=== PATIENT | male | born 1975 | race Caucasian/White ===

== ENCOUNTER 2024-10-27 10:14 | Outpatient (OUT) | payer OTHER, SELFPAY | END 2024-10-27 10:15 | disposition home or self-care (01) | LOC: PST 10:14 | PROVIDERS: Visit Provider Surgery | DX: Z01.818 Encounter for other preprocedural examination (principal); Z12.11 Encounter for screening for malignant neoplasm of colon; K21.9 Gastro-esophageal reflux disease without esophagitis; R10.13 Epigastric pain ==

== ENCOUNTER 2024-11-01 07:57 | Day surgery (SDC) | payer OTHER, SELFPAY ==
--- NOTE | 2024-11-01 | OP_ITS ---
OPERATION DATE: 11/01/2024 PREOPERATIVE DIAGNOSIS: Gastroesophageal reflux disease, upper abdominal pain, colorectal screening. POSTOPERATIVE DIAGNOSIS: Antral gastritis, mild sigmoid diverticulosis. PROCEDURE: EGD with antral biopsy x2 and colonoscopy to cecum. SURGEON: Jona Mcguire M.D. ANESTHESIA: Monitored anesthesia care. ESTIMATED BLOOD LOSS: Less than 1 mL. INDICATIONS AND CONSENT: Patient is a 49-year-old male presents for intermittent epigastric abdominal plain, gastroesophageal reflux disease, as well as colorectal screening. Indications, risks, benefits, alternatives of proceeding with EGD and colonoscopy were explained extensively to the patient, including the risks of bleeding, aspiration, esophageal/gastric/duodenal or colonic perforation or anesthetic complications. All of his questions were answered. Informed consent was obtained. PROCEDURE: Patient brought to the operating room, placed in the left lateral decubitus position. Monitored anesthesia care was provided. Bite block was placed in the patient?s mouth. Scope was inserted into the oropharynx. Under direct visualization, it was advanced into the esophagus, past the cricopharyngeus, down to the stomach. The stomach was insufflated with air. The pylorus was traversed down to the descending portion of the duodenum. There was no evidence of duodenitis or ulceration. There was no scarring within the pyloric channel. Scope was pulled back into the stomach and retroflexed. There was no significant hiatal hernia. There was moderate antral gastritis without ulceration or bleeding. Biopsy x2 was obtained with pediatric cold biopsy forceps with good hemostasis. The GE junction was noted at approximately 43 cm. There was no distal esophagitis or Gaitan?s changes. The remainder of the esophagus was unremarkable. The scope was then withdrawn. Patient tolerated procedure well, was positioned for colonoscopy. Rectal exam was performed, which showed no masses or blood. The scope was then inserted into the anal canal. Under direct visualization, it was advanced. It was advanced to the cecum where cecal markings were clearly identified. There was noted to be a good prep. Upon withdrawal of the scope, mucosal surfaces were carefully examined. There were no mass lesions or polyps. No inflammatory changes or ulcerations. There was mild sigmoid diverticulosis without inflammatory changes or scarring. The scope was retroflexed in the anal canal. There were some prominent rectal veins. No significant hemorrhoidal disease. The scope was then withdrawn. The patient tolerated procedure well, was sent to recovery room in good condition. f/u screening colonoscopy should be in 10 years. CC: Patient?s family physician MARLYN
--- OUTSIDE RECORDS SUMMARY | 2024-11-01 08:07 | XMS_ITS | CCD ---
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 Name Role Phone Jimmy Singletary Unavailable Unavailable RickJimmy cook Unavailable Unavailable Provider, None Unavailable Unavailable Jimmy Singletary Unavailable Unavailable Rickjoey, Jimmy P Unavailable Unavailable Provider, None Unavailable Unavailable Jimmy Singletary Unavailable Unavailable Jimmy Singletary Unavailable Unavailable Owen Dolan Unavailable Unavailable Provider, None Unavailable Unavailable Cole Mcnair Unavailable Unavailable Provider, None Unavailable Unavailable OWEN RÍOS Attending Unavailable TIMOTEO REYNOSO Attending Unavailable Owen Ríos DO Primary Care Provider Owen Ríos DO Unavailable NONE, XXXX Primary Care Physician Unavailab Rosendo Moreno Attending Unavailable Jona SEVILLA Attending Unavailable OWEN REYNOSO Referring Unavailable Allergies Allergy Classification Reported Allergen(s) Allergy Type Date of Onset Reaction(s) Facility (1 source) No Known Medication Allergies; Translations: [No Known Medication Allergies] Propensity to adverse reactions to drug (disorder) [facility] Repository Medications Current Medications Medication Drug Class(es) Dates Sig (Normalized) Sig (Original) omeprazole 40 mg delayed release oral capsule (2 sources) Proton Pump Inhibitor Start: 08-07-2024 take 1 capsule by mouth before mealtime omeprazole (PriLOSEC) [address] capsule Indications: Gastroesophageal reflux disease without esophagitis Take 1 capsule (40 mg) by mouth in the morning. Take before meals. Do not crush or chew.. 90 capsule 1 08/08/2024 Active Problems Problem Classification Problem Date Documented Date Episodic/Chronic Abdominal pain (2 sources) Epigastric pain; Translations: [Epigastric pain] Onset: 10-25-2024 Episodic Esophageal disorders (3 sources) Gastroesophageal reflux disease without esophagitis; Translations: [Gastro-esophageal reflux disease without esophagitis] Onset: 10-25-2024 Chronic Other nutritional; endocrine; and metabolic disorders (1 source) Body mass index 40+ - severely obese 10-25-2024 Chronic Other nutritional; endocrine; and metabolic disorders (1 source) Obese class III 10-04-2024 Chronic Other screening for suspected conditions (not mental disorders or infectious disease) (1 source) Screening for malignant neoplasm of colon done; Translations: [Encounter for screening for malignant neoplasm of colon] Onset: 10-25-2024 Episodic Residual codes; unclassified (1 source) Tobacco user; Translations: [Tobacco use] Onset: 10-25-2024 Episodic Residual codes; unclassified (1 source) Chews tobacco 10-25-2024 Episodic Unclassified (1 source) Patient encounter status 10-25-2024 Results Test Name Value Interpretation Reference Range Facility Ambulatory Visit Summaryon 0 10-25-2024 Ambulatory Visit Summary Ambulatory Visit Summary AMEENA HICKSBRADY Polk :1975 Visit Date:10/25/2024 Ambulatory Visit Instructions Your Diagnosis Screening for malignant neoplasm of colon Your Care Team Attending Physician - ROEL QUIROZ, Jona Martinez Primary Care Physician - NONE, XXXX Referring Physician - OWEN REYNOSO MD This Is Your Medications List Contact prescribing physician if questions or concerns omeprazole (omeprazole 40 mg Cap-DR) Procedures Performed Tonsillectomy and adenoidectomy. Discharge Vitals Heart Rate (Peripheral) 76 Respiratory Rate 16 Blood Pressure 128/88 Height 185 cm Height 73 in Weight 144 kg Weight 317.465 lb BMI 42.07 Medications What How Much When Instructions Unchanged omeprazole (omeprazole 40 mg Cap-DR) 1 Capsules By Mouth Every day Contact prescribing physician if questions or concerns Allergies No Known Allergies Problems Ongoing - Any problem that you are currently receiving treatment for. BMI 40.0-44.9, adult Class 3 obesity GERD (gastroesophageal reflux disease) Screening for malignant neoplasm of colon Patient Survey You may receive a survey via text or e-mail asking about your office visit. Please share your experience with us by completing your survey. We appreciate your feedback and thank you for choosing us for your care. [facility] Coding Summaryon 07-26-2018 Coding Summary CODING DATE: 018 [facility] STATUS: Home PAYOR: Commercial Insurance ADMIT DX: REASON FOR VISIT DX: R10.11 Right upper quadrant pain FINAL DX: PRINCIPAL: K29.00 Acute gastritis without bleeding SECONDARY: K76.0 Fatty (change of) liver, not elsewhere classified PROCEDURES DOCTOR NAME DATE NOTE: The code number assigned matches the documented diagnosis and / or procedure in the patient's chart. However, the narrative phrase printed from the coding software may appear abbreviated, or result in slightly different terminology. Coded By: Ernesto Agosto Date Saved: 07/26/2018 09:[address] [facility] Coding Summary CODING DATE: 018 [facility] STATUS: Home PAYOR: Commercial Insurance APC DESCRIPTION 5522 Level 2 Imaging without Contrast 5571 Level 1 Imaging with Contrast ADMIT DX: REASON FOR VISIT DX: R10.11 Right upper quadrant pain FINAL DX: PRINCIPAL: K29.00 Acute gastritis without bleeding SECONDARY: K76.0 Fatty (change of) liver, not elsewhere classified PYMT PROC APC STAT DESCRIPTION DOCTOR NAME DATE NOTE: The code number assigned matches the documented diagnosis and / or procedure in the patient's chart. However, the narrative phrase printed from the coding software may appear abbreviated, or result in slightly different terminology. Coded By: Ernesto Agosto Date Saved: 07/26/2018 09:[address] [facility] Patient Handouton 07-13-2018 Patient Handout Custom(Inserted Imag e. Unable to display)[address], [address], [place] [address]Fax Ymsfqxfi 14, 2018RE: Rosendo HicksTo whom it may concern:Rosendo was seen in the office today for a consultation. Please excuse him from work on : 07/13/18Cole musa M.D. [facility] Provider Orderson 07-06-2018 Protein mass conc [id number]#1.00OTGTIFF [facility] Coding Summaryon 07-04-2018 Coding Summary CODING DATE: 018 [facility] STATUS: Home PAYOR: Commercial Insurance APC DESCRIPTION 5592 Level 2 Nuclear Medicine and Related Services ADMIT DX: REASON FOR VISIT DX: R10.11 Right upper quadrant pain FINAL DX: PRINCIPAL: R10.11 Right upper quadrant pain SECONDARY: PYMT PROC APC STAT DESCRIPTION DOCTOR NAME DATE NOTE: The code number assigned matches the documented diagnosis and / or procedure in the patient's chart. However, the narrative phrase printed from the coding software may appear abbreviated, or result in slightly different terminology. Coded By: Madelaine Mendez Date Saved: 07/04/2018 01:[address] [facility] ED Note-Nursingon 07-04-2018 ED Note-Nursing Pt called and states he is still having trouble with pain in the area of his gallbladder, and was wondering who he was suppose to follow up with. Pt instructed to follow up with Dr. Dolan or Dr. Mcnair as advised per his discharge instructions. Pt gave verbal understanding. [facility] NM HIDA Scan w/ CCKon 2017 NM HIDA Scan w/ CCK HIDA SCAN WITH CCKCLINICAL DATA: Right upper quadrant abdominal pain for one week.Utilizing technetium 99m mebrofenin, HIDA scan was performed. Pulmocare, CCKwas not available for use at this time. Initial images fail to demonstrateobvious space-occupying lesion within the liver. Gallbladder visualizes at15 minutes post injection. Isotope activity is seen within proximal smallbowel loops at 60 minutes post injection. No evidence of cholecystitis orCBD obstruction.Post Pulmocare images were obtained. Ejection fraction of the gallbladder is58% which is within normal limits. No evidence of biliary dyskinesia orsphincter dysfunction is suggested.IMPRESSION: GROSSLY UNREMARKABLE HIDA SCAN WITH PULMOCARE DESCRIBED.EJECTION FRACTION OF THE GALLBLADDER IS 58%.NEERU Rivera #: [id number]: 07/01/2018T: 07/01/2018 Final Dictated by: Shilo Barraza MD SDictated DT/TM: 07/01/18 10:24Signed (Electronic Signature): Shilo Barraza MD 07/01/18 3:39 pmTechnologist: D[facility] Consent Formson 06-29-2018 Consent Forms [id number]#[id number] [facility] .Auto Diff 1on 10-29-2018 Auto Baso % 0.6 % Normal 0.2-2.0 [facility] Comment on above: Performed By: #### [id number], 77952511, 15 36818650, 2229311573, 2172986, 2344206, ####[facility] (DEFAULT)[address] [place] [address] Auto Sanders % 7 % Normal 1-12 [facility] Comment on above: Performed By: #### 9927714, 32727653, 15 79621599, 7870903435, 0293019, 8469409, ####[facility] (DEFAULT)[address] [place] [address] Auto Neut % 65 % Normal 44-88 [facility] Comment on above: Performed By: #### 8377851, 42306241, 15 73664950, 2048638971, 9682074, 5673368, ####[facility] (DEFAULT)[address] [place] [address] Baso Abs# 0.0 x10 Normal 0.0-0.2 [facility] Comment on above: Performed By: #### 9073845, 43175352, 15 85065275, 5453158302, 8921873, 8293807, 5397498332 ####[facility] (DEFAULT)[address] [place] [address] Eos Abs# 0.3 x10 Normal 0.0-0.4 [facility] Comment on above: Performed By: #### 6804488, 43922933, 15 90144538, 8196669866, 8154657, 0684028, ####[facility] (DEFAULT)[address] [place] [address] Eosinophils/100 WBC Auto (Bld) 4.1 % High 0.9-4.0 [facility] Comment on above: Performed By: #### 7737510, 18617008, 15 25150632, 2491317934, 5343619, 3440871, 9438341714 ####[facility] (DEFAULT)[address] [place] [address] Lymphocytes Auto #/vol (Bld) 1.6 x10 Normal 1.3-2.9 [facility] Comment on above: Performed By: #### 8155966, 86674731, 15 98699214, 9985540720, 7558101, 2519559, 6642903689 ####[facility] (DEFAULT)[address] [place] [address] Lymphocytes/100 WBC Auto (Bld) 23 % Normal 14-48 [facility] Comment on above: Performed By: #### 0575897, 73947102, 15 23211647, 4049522660, 2626521, 3179585, 9451590144 ####[facility] (DEFAULT)[address] [place] [address] Sanders Abs# 0.5 x10 Normal 0.0-0.8 [facility] Comment on above: Performed By: #### 3367805, 92647246, 15 76929068, 9108454855, 5188633, 8074343, 1952384749 ####[facility] (DEFAULT)[address] [place] [address] Neut Abs# 4.3 x10 Normal 1.5-9.2 [facility] Comment on above: Performed By: #### 5199736, 43766880, 15 24268840, 0527748089, 3132199, 6315304, 3119228737 ####[facility] (DEFAULT)[address] [place] [address] Amylaseon 06-27-2018 Amylase enzyme act/vol 35.0 unit/L Normal 28.0-100.0 [facility] Comment on above: Performed By: #### 5587468, 19293217, 15 24403829, 5935879231, 4315343, 6744183, 7586906575 ####[facility] (DEFAULT)[address] [place] [address] CBC w/ Auto Diffon 8 Erythrocyte distribution width Auto Ratio (RBC) 13.8 % Normal 11.5-15.0 [facility] Comment on above: Performed By: #### 5098483, 43568853, 15 70719841, 9100619943, 5435374, 0142003, 1999491698 ####[facility] (DEFAULT)[address] [place] [address] Hematocrit Auto Volume Fraction (Bld) 45.6 % Normal 34.8-51.9 [facility] Comment on above: Performed By: #### 7921071, 21862467, 15 38396854, 5349183811, 5437820, 5208885, 4232171593 ####[facility] (DEFAULT)[address] [place] [address] Hemoglobin mass conc (Bld) 15.6 g/dL Normal 11.8-17.7 [facility] Comment on above: Performed By: #### 9453947, 50565558, 15 79435040, 4005435976, 1642916, 9119690, 8618618545 ####[facility] (DEFAULT)[address] [place] [address] Man Diff? Auto Normal [facility] Comment on above: Performed By: #### 1529554, 10787491, 15 18065759, 3115960489, 4479679, 3944889, 4807305739 ####[facility] (DEFAULT)[address] [place] [address] MCH Auto Entitic mass (RBC) 30 pg Normal 24-34 [facility] Comment on above: Performed By: #### 1952542, 18879732, 15 48988482, 2845521427, 4646848, 9370833, 2289608171 ####[facility] (DEFAULT)[address] [place] [address] MCHC Auto mass conc (RBC) 34 g/dL Normal 26-37 [facility] Comment on above: Performed By: #### 4000668, 83526311, 15 87236210, 4455645966, 8034244, 8698383, 9913900117 ####[facility] (DEFAULT)[address] [place] [address] MCV Auto Entitic volume (RBC) 88 fL Normal 81-100 [facility] Comment on above: Performed By: #### 1860132, 49110692, 15 19152721, 3523178743, 5625040, 7435039, 7238808256 ####[facility] (DEFAULT)[address] [place] [address] 85061 Platelet mean volume Auto Entitic volume (Bld) 11.4 fL High 6.3-10.2 [facility] Comment on above: Performed By: #### 1079511, 81697147, 15 24114540, 2672210546, 5446122, 4077999, 7997329211 ####[facility] (DEFAULT)[address] [place] [address] 91484 Platelets Auto #/vol (Bld) 227 x10 Normal 138-427 [facility] Comment on above: Performed By: #### 8102786, 49938671, 15 31401942, 9493672419, 8808997, 3278176, 2458778304 ####[facility] (DEFAULT)[address] [place] [address] RBC Auto #/vol (Bld) 5.21 x10 Normal 3.70-5.30 [facility] Comment on above: Performed By: #### 7332244, 31002139, 15 43552568, 9694914285, 8613063, 5473717, 8384101446 ####[facility] (DEFAULT)[address] [place] [address] 61640 WBC Auto #/vol (Bld) 6.6 x10 Invalid Interpretation Code [facility] Comment on above: Performed By: #### 2284641, 50377082, 15 10440678, 4946940488, 5067478, 1352547, 5856671109 ####[facility] (DEFAULT)[address] [place] [address] 76924 CMP Standardon 06-27-2018 eGFR Non AA >60 Invalid Interpretation Code [facility] Comment on above: Performed By: #### 5513167, 63667447, 15 58018029, 9273641580, 0275158, 6527560, 1701572530 ####[facility] (DEFAULT)[address] [place] [address] 19004 eGFR AA >60 Invalid Interpretation Code [facility] Comment on above: Result Comment: Chronic Kidney disease c ould be indicated at eGFRs of less than 60 ml/min/1.73m2. Kidney Failure is indicated at less than 15 ml/min/1.73m2 Performed By: #### 7 514656, 32733409, 0208318858, 0330821755, 0718079, 4087895, 6320265612 ####[facility] (DEFAULT)[address] [place] [address] 68151 Albumin mass conc 4.1 g/dL Normal 3.5-5.0 [facility] Comment on above: Performed By: #### 3691759, 01086531, 15 51805071, 8661938713, 3419707, 0449810, 2843574808 ####[facility] (DEFAULT)[address] [place] [address] 68557 Albumin/Globuli n mass ratio 1.1 {ratio} Low 1.4-2.6 [facility] Comment on above: Performed By: #### 7083722, 62723198, 15 97160021, 0792176995, 7143262, 6789491, 6463843578 ####[facility] (DEFAULT)[address] [place] [address] 51252 Alk Phos 70 IU/L Normal 32-91 [facility] Comment on above: Performed By: #### 4100130, 75212717, 15 05398797, 8013935624, 5291978, 3123026, 0964191054 ####[facility] (DEFAULT)[address] [place] [address] 43876 ALT/SGPT 31.0 IU/L Normal 17.0-63.0 [facility] Comment on above: Performed By: #### 4713086, 35620373, 15 26160335, 4668700479, 7878978, 2711846, 8391353921 ####[facility] (DEFAULT)[address] [place] [address] 28168 Anion gap 3 molar conc 14.0 mmol/L Normal 5.0-19.0 [facility] Comment on above: Performed By: #### 2962386, 95011861, 15 57043586, 5737026038, 3721958, 9526193, 1924532316 ####[facility] (DEFAULT)[address] [place] [address] 87471 AST/SGOT 20 IU/L Normal 15-41 [facility] Comment on above: Performed By: #### 8065566, 66988585, 15 19846504, 6819108289, 1510490, 5881465, 3157581378 ####[facility] (DEFAULT)[address] [place] [address] 93858 Bili Total 0.8 mg/dL Normal 0.3-1.2 [facility] Comment on above: Performed By: #### 7612000, 44526393, 15 45876912, 3568569928, 5776260, 7284046, 5291625144 ####[facility] (DEFAULT)[address] [place] [address] 47677 Calcium mass conc 9.4 mg/dL Normal 8.9-10.3 [facility] Comment on above: Performed By: #### 3128906, 41289981, 15 26798847, 0657208305, 1052929, 7498898, 5386868250 ####[facility] (DEFAULT)[address] [place] [address] 31190 Chloride molar conc 100 mmol/L Low 101-111 [facility] Comment on above: Performed By: #### 8605460, 19531729, 15 10219748, 5861131653, 2580888, 4886699, 7590763469 ####[facility] (DEFAULT)[address] [place] [address] 20866 CO2 molar conc 26 mmol/L Normal 21-32 [facility] Comment on above: Performed By: #### 8496748, 59099085, 15 89745016, 2212826013, 2561600, 0452305, 9715342944 ####[facility] (DEFAULT)[address] [place] [address] 53606 Creatinine mass conc 0.91 mg/dL Normal 0.90-1.30 [facility] Comment on above: Performed By: #### 1999538, 32666109, 15 15828606, 6415172250, 5568630, 3957022, 5681426428 ####[facility] (DEFAULT)[address] [place] [address] Globulin Calculated mass conc (S) 3.8 g/dL Normal 1.5-4.3 [facility] Comment on above: Performed By: #### 5506888, 24278892, 15 99302303, 6378372075, 3819709, 8732431, 7136328854 ####[facility] (DEFAULT)[address] [place] [address] 72604 Glucose mass conc 100.0 mg/dL Normal 74.0-118.0 [facility] Comment on above: Performed By: #### 9931377, 22328214, 15 16280375, 1235810102, 2298866, 7037150, 4937791665 ####[facility] (DEFAULT)[address] [place] [address] 79174 Osmolality 271 mOsm/L Invalid Interpretation Code [facility] Comment on above: Performed By: #### 9211818, 73161327, 15 00203005, 0310137006, 0192458, 0244939, ####[facility] (DEFAULT)[address] [place] [address] 18158 Potassium molar conc 3.7 mmol/L Normal 3.6-5.1 [facility] Comment on above: Performed By: #### 4209187, 59801684, 15 76430113, 4831710469, 4056073, 7713195, ####[facility] (DEFAULT)[address] [place] [address] 01902 Protein mass conc 7.9 g/dL Normal 6.5-8.1 [facility] Comment on above: Performed By: #### 1770307, 55600046, 15 38747913, 2697875425, 6163704, 0137292, 4252575747 ####[facility] (DEFAULT)[address] [place] [address] 26569 Sodium molar conc 136.0 mmol/L Normal 136.0-144.0 [facility] Comment on above: Performed By: #### 7807426, 46422367, 15 77464933, 6383934609, 3117785, 8493573, 6757431392 ####[facility] (DEFAULT)[address] [place] [address] Urea nitrogen mass conc 11 mg/dL Normal 8-26 [facility] Comment on above: Performed By: #### 8763062, 46951900, 15 56851116, 5457932542, 2063291, 8657311, 8020791860 ####[facility] (DEFAULT)[address] [place] [address] Urea nitrogen/Creati nine mass ratio 12.0 mg/mg Normal 4.6-16.2 [facility] Comment on above: Performed By: #### 2174587, 73100645, 15 62422718, 3601805069, 3189155, 2896520, 7026426562 ####[facility] (DEFAULT)[address] [place] [address] CT Abdomen/Pelvis w/ Contras ton 06-27-2018 CT Abdomen/Pelvis w/ Contrast CT ABDOMEN AND CT PELVIS WITH CONTRASTCLINICAL DATA: Right upper and lower quadrant abdominal and upper pelvicpain for three days with associated diarrhea, symptoms worse today. Dosereduction technique was utilized for these studies.CT abdomen study was performed with the use of intravenous and with oralcontrast. There are minimal atelectatic and/or fibrotic changes in the rightlower lung field. Views of the liver and spleen fail to demonstrate evidenceof focal mass in either organ. There is mild to moderate decreasedattenuation of the liver compatible with fatty infiltration. Gallbladder,pancreas and adrenal glands appear unremarkable. Bowel loops are grosslyunremarkable. Stomach appears unremarkable. Visualized vascular structuresare intact. No evidence of adenopathy in the retroperitoneum. No evidenceof renal mass or obstructive uropathy.CT pelvis study was performed with the use of intravenous and oral contrast.There is a small fat filled umbilical hernia without bowel content. Bladderappears unremarkable. Prostate gland is grossly within normal limits forsize. Prostate calcifications are noted. Pararectal fat planes are intact.Bowel loops are grossly unremarkable. Visualized vascular structures areintact. No evidence of adenopathy. The appendix is visualized and appearsunremarkable. There is mild wall thickening at the base of the cecum likelyrelated to spasm. There are mild degenerative changes in the lumbar spinewith areas of mild spinal stenosis suggested. There is bilateral [id number] without obvious associated spondylolisthesis at L3-L4. There isaura small fat filled right inguinal hernia without bowel content.IMPRESSION:1. CT ABDOMEN AND CT PELVIS STUDIES FAIL TO DEMONSTRATE DEFINITE EVIDENCEOF ACUTE PROCESS.2. SMALL FAT FILLED UMBILICAL HERNIA.3. SMALL FAT FILLED RIGHT INGUINAL HERNIA.4. MILD TO MODERATE FATTY INFILTRATION OF THE LIVER.Shilo Barraza MDJOB #: [id number]: 06/28/2018T: 06/28/2018 Final Dictated by: Shilo Barraza MD SDictated DT/TM: 06/28/18 8:11Signed (Electronic Signature): Shilo Barraza MD S 06/28/18 11:25 aTechnologist: LT RAYNA Normal [facility] ED Clinical Summaryon 2017 ED Clinical Summary [facility] - Emergency [address] [place], [place] [id number] ed Clinical SummaryPERSON INFORMATIONName: ROSENDO HICKS Age: 42 Years Sex: MALEDOB: [birth year] MRN: Acct#:Visit Reason: Abdominal pain; RIGHT FLANK PAIN Arrival: 06/27/18 15:43:00 Discharge: 06/27/18 19:55:00LOS: 000 04:12 Check In: 06/27/18 15:43:00 Checkout:06/27/18 19:55:00Address:[address] [facility] [address]: Provider, NonePROVIDER INFORMATIONProvider Role Assigned UnassignedKeri Jimenez ED PA 06/27/18 15:49:35Monique Cam RN ED Nurse 06/27/18 15:50:26 06/27/18 19:21:05Malgorzata Dave ED Nurse 06/27/18 19:20:06VITALS INFORMATIONVital Sign Triage LatestTemperature TympanicTemperature Temporal ArteryPulse Rate 80 bpm 82 bpmO2 Sat 100 % 100 %Respiratory Rate 18 br/min 16 br/minBlood Pressure 142 mmHg/97 mmHg 142 mmHg/97 mmHgMEDICAL INFORMATIONMedications Given:Medication Dose Routesodium chloride 10 mL IV Pushiohexol 350 mg IV Pushsodium chloride 10 mL IV PushAllergy Information:No Known Medication AllergiesPHYSICIAN DOCUMENTATIONPatient: ROSENDO HICKS : 42 years Sex: MALE : 73Associated Diagnoses: Acute gastritis; Fatty infiltration of liverAuthor: Zohra Jimenez InformationTime seen: Date & time 06/27/18 15:54:00.History source: Patient.Arrival mode: Private vehicle.History limitation: None.Additional information: Chief Complaint from Nursing Triage Note : Chief Rdpzobslp84/29/18 15:50 EDT Chief Complaint RUQ pain intermittent X 2-3 months, increasing X 2 days with nausea today .History of Present [id number]-wqpo-wam male presents to emergency department complaining of right upper quadrant abdominal discomfort. Patient states he's been having the symptoms intermittently for the last 2-3 months. It's been worse over the last 2 days. Experienced some nausea and increasing pain after eating a breakfast sandwich earlier this morning. He states symptoms do seem to get worse after eating. She's not had any vomiting but has had intermittent diarrhea as well. There is no fever or chills. Pain at its worse is a 7 on a 10 scale. Currently it is a 2-3 on a 10 scale.Review of SystemsConstitutional symptoms: No fever, no chills.Skin symptoms: No rash,ENMT symptoms: No ear pain, no sore throat, no nasal congestion.Respiratory symptoms: No shortness of breath, no cough.Cardiovascular symptoms: No chest pain, no palpitations, no tachycardia, no syncope.Gastrointestinal symptoms: Abdominal pain, moderate, right upper quadrant, nausea, diarrhea, No vomiting, Additional review of systems information: All other systems reviewed and otherwise negative.Health StatusAllergies:No active allergies have been recorded..Past Medical/ Family/ Social HistoryMedical history:No active or resolved past medical history items have been selected or recorded..Surgical history:No active procedure history items have been selected or recorded..Family history:No family history items have been selected or recorded..Social history:Social & Psychosocial HabitsNo Data Available.Problem list:No qualifying data available.Physical Examination Vital SignsVital Signs06/27/18 15:50 EDT Temperature Oral 36.9 DegC Peripheral Pulse Rate 80 bpm Respiratory Rate 18 br/min Systolic Blood Pressure 142 mmHg HI Diastolic Blood Pressure 97 mmHg HI SpO2 100 % Oxygen Therapy Nasal cannula.General: Alert, no acute distress.Skin: Warm, dry, pink, intact.Head: Normocephalic, atraumatic.Neck: Supple, trachea midline.Eye: Normal conjunctiva.Ears, nose, mouth and throat: Oral mucosa moist.Cardiovascular: Regular rate and rhythm, No murmur, Normal peripheral perfusion, No edema.Respiratory: Lungs are clear to auscultation, respirations are non-labored, breath sounds are equal, Symmetrical chest wall expansion.Gastrointestinal: Soft, Non distended, Tenderness: Mild, right upper quadrant, Guarding: Negative, Rebound: Negative, Bowel sounds: Normal, Signs: None.Musculoskeletal: Normal ROM, normal strength.Neurological: Alert and oriented to person, place, time, and situation, normal motor observed, normal speech observed, normal coordination observed.Medical Decision MakingDifferential Diagnosis: Abdominal pain, renal stone, biliary colic, pancreatitis, gastritis, not pyelonephritis.Rationale: This patient presents to the emergency department with a 2-3 month history of intermittent right upper quadrant abdominal pain that worsens after eating. He describes indigestion like symptoms as well. We'll check basic blood work including amylase and lipase and get a gallbladder ultrasound. Will consider CT as well..Documents reviewed: Emergency department nurses' notes.Orders Launch OrdersLaboratory:Lipase Level (Order): Blood, Stat collect, 06/27/18 15:54 EDT, Lab CollectLactic Acid (Order): Blood, Stat collect, 06/27/18 15:54 EDT, Lab CollectCMP Standard (Order): Blood, Stat collect, 06/27/18 15:54 EDT, Lab CollectCBC w/ Auto Diff (Order): Blood, Stat collect, 06/27/18 15:54 EDT, Lab CollectAmylase Level (Order): Blood, Stat collect, 06/27/18 15:54 EDT, Lab CollectRadiology:US Gallbladder (Order): 06/27/18 15:55 EDT Stat, abdominal pain, Allow Modification Per Radiologist, Transport Mode: Wheelchair, Launch OrdersPatient Care:Saline Lock Insert (Order): 06/27/18 16:49 EDT, Constant orderPharmacy:Normal Saline Flush (Order): 10 mL, IV Push, As DirectedRadiology:CT Abdomen/Pelvis w/ Contrast (Order): 06/27/18 16:49 EDT Stat, RUQ pain, Allow Modification Per Radiologist, Transport Mode: Cart, IV and oral contrast, Yes.Results review: Lab results : Lab Hkxxpmvzt40/29/18 15:55 EDT Sodium Level 136.0 mmol/L Potassium Level 3.7 mmol/L Chloride Level 100 mmol/L LOW CO2 26 mmol/L Anion Gap 14.0 mmol/L Glucose Level 100.0 mg/dL BUN 11 mg/dL Creatinine Level 0.91 mg/dL BUN/Creat Ratio 12.0 eGFR AA >60 mL/min/1.73m2 NA eGFR Non AA >60 mL/min/1.73m2 NA Calcium Level 9.4 mg/dL Bili Total 0.8 mg/dL Alk Phos 70 IU/L AST/SGOT 20 IU/L ALT/SGPT 31.0 IU/L Protein Total 7.9 gm/dL Albumin Level 4.1 gm/dL Globulin 3.8 gm/dL A/G Ratio 1.1 LOW Amylase Level 35.0 unit/L Lipase Level 21.0 IU/L LOW Osmolality 271 mOsm/L NA Lactic Acid 8.8 mg/dL WBC 6.6 x103/mcL RBC 5.21 x106/mcL Hgb 15.6 gm/dL Hct 45.6 % MCV 88 fL MCH 30 pg MCHC 34 gm/dL RDW 13.8 % Platelet 227 x103/mcL MPV 11.4 fL HI Auto Neut % 65 % Auto Lymph % 23 % Auto Sanders % 7 % Auto Eos % 4.1 % HI Auto Baso % 0.6 % Neut Abs# 4.3 x103/mcL Lymph Abs# 1.6 x103/mcL Sanders Abs# 0.5 x103/mcL Eos Abs# 0.3 x103/mcL Baso Abs# 0.0 x103/mcL Tube Collected Yes Tube Collected Yes.Radiology results: Gallbladder ultrasound is interpreted by the radiologist. Gallbladder is within normal. Common bile duct measures 0.35 cm. Gallbladder wall is normal at 0.2 cm. Liver is consistent with fatty liver disease., CT of the abdomen and pelvis with IV and oral contrast interpreted by the radiologist. No acute pathology is noted..Reexamination/ ReevaluationGallbladder ultrasound is interpreted by the radiologist does not show any acute abnormalities. Discussed CT scan with patient and and they are agreeable. He'll be to order outpatient HIDA scan if CT is normal. This patient presented to the emergency department with a 2-3 month history of intermittent right upper quadrant abdominal pain that seems to get worse with eating. On exam, there is no guarding, rebound or rigidity. There is no Mendez sign. He is afebrile. Laboratory values were normal with sodium 136, potassium 3.7, chloride 100 and CO2 of 26. Glucose of 100 with BUN and creatinine 11 and 0.91. Liver function studies were normal with total bili of 0.8, alkaline phosphatase 70, AST of 20 and ALT at 31. Amylase and lipase are also normal at 35 and 21. Lactic acid 8.8. There is no leukocytosis with WBC of 6.6. H&H 15.6 and 45.6. An ultrasound of the gallbladder was completed. There was no acute abnormalities noted. Patient agreed to CT scan with IV and oral contrast. This was interpreted by the radiologist. There are no acute findings noted. Patient was in no acute distress. Plan is to discharge home with prescriptions for Protonix as well as outpatient order for HIDA scan. Patient is to follow-up with medicine on-call and return to ER for any worsening or concerning symptoms.Impression and PlanDiagnosisAcute gastritis ([id number] K29.0, Discharge, Medical)Fatty infiltration of liver ([id number]-JW K76.0, Discharge, Medical)PlanCondition: Stable.Disposition: Discharged: Time 06/27/18 19:35:00, to home.Prescriptions: Launch prescriptionsPharmacy:HIDA Scan (Prescribe): See Instructions, DX: RUQ pain Results to Dr. Dolan, 1 EA, 0 Refill(s), Launch Meds List (Selected)PrescriptionsPrescribedP rotonix 40 mg oral delayed release tablet: 40 mg = 1 tab(s), PO, Daily, 30 tab(s), 0 Refill(s).Patient was given the following educational materials: Biliary Colic, Adult, Fatty Liver.Follow up with: Owen Dolan Within 7 to 10 days; ; Cole Mcnair Within 7 to 10 days General surgery.Counseled: Patient, Family, Regarding diagnosis, Regarding diagnostic results, Regarding treatment plan, Regarding prescription, Patient indicated understanding of instructions.DISCHARGE INFORMATION:Discharge Disposition: HomeDischarge Location: HomePATIENT EDUCATION INFORMATIONInstructions: Biliary Colic, Adult; Fatty LiverFollow-Up:With: Address: When:Cole Mcnair Within 7 to 10 daysComments:General surgeryWith: Address: When:Owen Dolan Within 7 to 10 daysDIAGNOSIS:Acute gastritis; Fatty infiltration of liverPatient Understands: Yes - Patient/family/caregiver verbalizes understanding of instructions givenComment: [facility] - Physician Patient: ROSENDO HICKS : 42 years Sex: MALE : 73Associated Diagnoses: Acute gastritis; Fatty infiltration of liverAuthor: Zohra Jimenez InformationTime seen: Date & time 06/27/18 15:54:00.History source: Patient.Arrival mode: Private vehicle.History limitation: None.Additional information: Chief Complaint from Nursing Triage Note : Chief Ymncbkquf85/29/18 15:50 EDT Chief Complaint RUQ pain intermittent X 2-3 months, increasing X 2 days with nausea today .History of Present [id number] male presents to emergency department complaining of right upper quadrant abdominal discomfort. Patient states he's been having the symptoms intermittently for the last 2-3 months. It's been worse over the last 2 days. Experienced some nausea and increasing pain after eating a breakfast sandwich earlier this morning. He states symptoms do seem to get worse after eating. She's not had any vomiting but has had intermittent diarrhea as well. There is no fever or chills. Pain at its worse is a 7 on a 10 scale. Currently it is a 2-3 on a 10 scale.Review of SystemsConstitutional symptoms: No fever, no chills.Skin symptoms: No rash,ENMT symptoms: No ear pain, no sore throat, no nasal congestion.Respiratory symptoms: No shortness of breath, no cough.Cardiovascular symptoms: No chest pain, no palpitations, no tachycardia, no syncope.Gastrointestinal symptoms: Abdominal pain, moderate, right upper quadrant, nausea, diarrhea, No vomiting, Additional review of systems information: All other systems reviewed and otherwise negative.Health StatusAllergies:No active allergies have been recorded..Past Medical/ Family/ Social HistoryMedical history:No active or resolved past medical history items have been selected or recorded..Surgical history:No active procedure history items have been selected or recorded..Family history:No family history items have been selected or recorded..Social history:Social & Psychosocial HabitsNo Data Available.Problem list:No qualifying data available.Physical Examination Vital SignsVital Signs06/27/18 15:50 EDT Temperature Oral 36.9 DegC Peripheral Pulse Rate 80 bpm Respiratory Rate 18 br/min Systolic Blood Pressure 142 mmHg HI Diastolic Blood Pressure 97 mmHg HI SpO2 100 % Oxygen Therapy Nasal cannula.General: Alert, no acute distress.Skin: Warm, dry, pink, intact.Head: Normocephalic, atraumatic.Neck: Supple, trachea midline.Eye: Normal conjunctiva.Ears, nose, mouth and throat: Oral mucosa moist.Cardiovascular: Regular rate and rhythm, No murmur, Normal peripheral perfusion, No edema.Respiratory: Lungs are clear to auscultation, respirations are non-labored, breath sounds are equal, Symmetrical chest wall expansion.Gastrointestinal: Soft, Non distended, Tenderness: Mild, right upper quadrant, Guarding: Negative, Rebound: Negative, Bowel sounds: Normal, Signs: None.Musculoskeletal: Normal ROM, normal strength.Neurological: Alert and oriented to person, place, time, and situation, normal motor observed, normal speech observed, normal coordination observed.Medical Decision MakingDifferential Diagnosis: Abdominal pain, renal stone, biliary colic, pancreatitis, gastritis, not pyelonephritis.Rationale: This patient presents to the emergency department with a 2-3 month history of intermittent right upper quadrant abdominal pain that worsens after eating. He describes indigestion like symptoms as well. We'll check basic blood work including amylase and lipase and get a gallbladder ultrasound. Will consider CT as well..Documents reviewed: Emergency department nurses' notes.Orders Launch OrdersLaboratory:Lipase Level (Order): Blood, Stat collect, 06/27/18 15:54 EDT, Lab CollectLactic Acid (Order): Blood, Stat collect, 06/27/18 15:54 EDT, Lab CollectCMP Standard (Order): Blood, Stat collect, 06/27/18 15:54 EDT, Lab CollectCBC w/ Auto Diff (Order): Blood, Stat collect, 06/27/18 15:54 EDT, Lab CollectAmylase Level (Order): Blood, Stat collect, 06/27/18 15:54 EDT, Lab CollectRadiology:US Gallbladder (Order): 06/27/18 15:55 EDT Stat, abdominal pain, Allow Modification Per Radiologist, Transport Mode: Wheelchair, Launch OrdersPatient Care:Saline Lock Insert (Order): 06/27/18 16:49 EDT, Constant orderPharmacy:Normal Saline Flush (Order): 10 mL, IV Push, As DirectedRadiology:CT Abdomen/Pelvis w/ Contrast (Order): 06/27/18 16:49 EDT Stat, RUQ pain, Allow Modification Per Radiologist, Transport Mode: Cart, IV and oral contrast, Yes.Results review: Lab results : Lab Qzntlehpy11/29/18 15:55 EDT Sodium Level 136.0 mmol/L Potassium Level 3.7 mmol/L Chloride Level 100 mmol/L LOW CO2 26 mmol/L Anion Gap 14.0 mmol/L Glucose Level 100.0 mg/dL BUN 11 mg/dL Creatinine Level 0.91 mg/dL BUN/Creat Ratio 12.0 eGFR AA >60 mL/min/1.73m2 NA eGFR Non AA >60 mL/min/1.73m2 NA Calcium Level 9.4 mg/dL Bili Total 0.8 mg/dL Alk Phos 70 IU/L AST/SGOT 20 IU/L ALT/SGPT 31.0 IU/L Protein Total 7.9 gm/dL Albumin Level 4.1 gm/dL Globulin 3.8 gm/dL A/G Ratio 1.1 LOW Amylase Level 35.0 unit/L Lipase Level 21.0 IU/L LOW Osmolality 271 mOsm/L NA Lactic Acid 8.8 mg/dL WBC 6.6 x103/mcL RBC 5.21 x106/mcL Hgb 15.6 gm/dL Hct 45.6 % MCV 88 fL MCH 30 pg MCHC 34 gm/dL RDW 13.8 % Platelet 227 x103/mcL MPV 11.4 fL HI Auto Neut % 65 % Auto Lymph % 23 % Auto Sanders % 7 % Auto Eos % 4.1 % HI Auto Baso % 0.6 % Neut Abs# 4.3 x103/mcL Lymph Abs# 1.6 x103/mcL Sanders Abs# 0.5 x103/mcL Eos Abs# 0.3 x103/mcL Baso Abs# 0.0 x103/mcL Tube Collected Yes Tube Collected Yes.Radiology results: Gallbladder ultrasound is interpreted by the radiologist. Gallbladder is within normal. Common bile duct measures 0.35 cm. Gallbladder wall is normal at 0.2 cm. Liver is consistent with fatty liver disease., CT of the abdomen and pelvis with IV and oral contrast interpreted by the radiologist. No acute pathology is noted..Reexamination/ ReevaluationGallbladder ultrasound is interpreted by the radiologist does not show any acute abnormalities. Discussed CT scan with patient and and they are agreeable. He'll be to order outpatient HIDA scan if CT is normal. This patient presented to the emergency department with a 2-3 month history of intermittent right upper quadrant abdominal pain that seems to get worse with eating. On exam, there is no guarding, rebound or rigidity. There is no Mendez sign. He is afebrile. Laboratory values were normal with sodium 136, potassium 3.7, chloride 100 and CO2 of 26. Glucose of 100 with BUN and creatinine 11 and 0.91. Liver function studies were normal with total bili of 0.8, alkaline phosphatase 70, AST of 20 and ALT at 31. Amylase and lipase are also normal at 35 and 21. Lactic acid 8.8. There is no leukocytosis with WBC of 6.6. H&H 15.6 and 45.6. An ultrasound of the gallbladder was completed. There was no acute abnormalities noted. Patient agreed to CT scan with IV and oral contrast. This was interpreted by the radiologist. There are no acute findings noted. Patient was in no acute distress. Plan is to discharge home with prescriptions for Protonix as well as outpatient order for HIDA scan. Patient is to follow-up with medicine on-call and return to ER for any worsening or concerning symptoms.Impression and PlanDiagnosisAcute gastritis ([id number] K29.0, Discharge, Medical)Fatty infiltration of liver ([id number] K76.0, Discharge, Medical)PlanCondition: Stable.Disposition: Discharged: Time 06/27/18 19:35:00, to home.Prescriptions: Launch prescriptionsPharmacy:HIDA Scan (Prescribe): See Instructions, DX: RUQ pain Results to Dr. Dolan, 1 EA, 0 Refill(s), Launch Meds List (Selected)PrescriptionsPrescribedP rotonix 40 mg oral delayed release tablet: 40 mg = 1 tab(s), PO, Daily, 30 tab(s), 0 Refill(s).Patient was given the following educational materials: Biliary Colic, Adult, Fatty Liver.Follow up with: Owen Dolan Within 7 to 10 days; ; Cole Mcnair Within 7 to 10 days General surgery.Counseled: Patient, Family, Regarding diagnosis, Regarding diagnostic results, Regarding treatment plan, Regarding prescription, Patient indicated understanding of instructions.[Electronically Signed on: 06/27/2018 19:42 EDT] Keri Jimenez[Electronically Signed on: 06/28/2018 18:54 EDT] Jimmy Singletary MD[Verified on: 06/27/2018 19:42 EDT] Keri Jimenez [facility] ED Patient Education Noteon 06-27-2018 ED Patient Education Note Education MaterialsGastroenterologyBiliary Colic, AdultBiliary colic is severe pain caused by a problem with a small organ in the upper right part of your belly (gallbladder). The gallbladder stores a digestive fluid produced in the liver (bile) that helps the body break down fat. Bile and other digestive enzymes are carried from the liver to the small intestine though tube-like structures (bile ducts). The gallbladder and the bile ducts form the biliary tract. Sometimes hard deposits of digestive fluids form in the gallbladder (gallstones) and block the flow of bile from the gallbladder, causing biliary colic. This condition is also called a gallbladder attack. Gallstones can be as small as a grain of sand or as big as a golf ball. There could be just one gallstone in the gallbladder, or there could be many.What are the causes?Biliary colic is usually caused by gallstones. Less often, a tumor could block the flow of bile from the gallbladder and trigger biliary colic.What increases the risk?This condition is more likely to develop in:? Women.? People of descent.? People with a family history of gallstones.? People who are obese.? People who suddenly or quickly lose weight.? People who eat a high-calorie, low-fiber diet that is rich in refined carbs (carbohydrates), such as white bread and white rice.? People who have an intestinal disease that affects nutrient absorption, such as Crohn disease.? People who have a metabolic condition, such as metabolic syndrome or diabetes.What are the signs or symptoms?Severe pain in the upper right side of the belly is the main symptom of biliary colic. You may feel this pain below the chest but above the hip. This pain often occurs at night or after eating a very fatty meal. This pain may get worse for up to an hour and last as long as 12 hours. In most cases, the pain fades (subsides) within a couple hours.Other symptoms of this condition include:? Nausea and vomiting.? Pain under the right shoulder.How is this diagnosed?This condition is diagnosed based on your medical history, your symptoms, and a physical exam. You may have tests, including:? Blood tests to rule out infection or inflammation of the bile ducts, gallbladder, pancreas, or liver.? Imaging studies such as:? Ultrasound.? CT scan.? MRI.In some cases, you may need to have an imaging study done using a small amount of radioactive material (nuclear medicine) to confirm the diagnosis.How is this treated?Treatment for this condition may include medicine to relieve your pain or nausea. If you have gallstones that are causing biliary colic, you may need surgery to remove the gallbladder (cholecystectomy). Gallstones can also be dissolved gradually with medicine. It may take months or years before the gallstones are completely gone.Follow these instructions at home:? Take [id number] and prescription medicines only as told by your health care provider.? Drink enough fluid to keep your urine clear or pale yellow.? Follow instructions from your health care provider about eating or drinking restrictions. These may include avoiding:? Fatty, greasy, and fried foods.? Any foods that make the pain worse.? Overeating.? Having a large meal after not eating for a while.? Keep all follow-up visits as told by your health care provider. This is important.How is this prevented?Steps to prevent this condition include:? Maintaining a healthy body weight.? Getting regular exercise.? Eating a healthy, high-fiber, low-fat diet.? Limiting how much sugar and refined carbs you eat, such as sweets, white flour, and white rice.Contact a health care provider if:? Your pain lasts more than 5 hours.? You vomit.? You have a fever and chills.? Your pain gets worse.Get help right away if:? Your skin or the whites of your eyes look yellow (jaundice).? Your have tea-colored urine and light-colored stools.? You are dizzy or you faint.This information is not intended to replace advice given to you by your health care provider. Make sure you discuss any questions you have with your health care provider.Document Released: 01/17/2007 Document Revised: 04/13/2017 Document Reviewed: 03/01/2017[employer] Patient Education ? 2018 [employer].Fatty LiverFatty liver, also called hepatic steatosis or steatohepatitis, is a condition in which too much fat has built up in your liver cells. The liver removes harmful substances from your bloodstream. It produces fluids your body needs. It also helps your body use and store energy from the food you eat. In many cases, fatty liver does not cause symptoms or problems. It is often diagnosed when tests are being done for other reasons. However, over time, fatty liver can cause inflammation that may lead to more serious liver problems, such as scarring of the liver (cirrhosis).What are the causes?Causes of fatty liver may include:? Drinking too much alcohol.? Poor nutrition.? Obesity.? Aden syndrome.? Diabetes.? Hyperlipidemia.? .? Certain drugs.? Poisons.? Some viral infections.What increases the risk?You may be more likely to develop fatty liver if you:? Abuse alcohol.? Are .? Are overweight.? Have diabetes.? Have hepatitis.? Have a high triglyceride level.What are the signs or symptoms?Fatty liver often does not cause any symptoms. In cases where symptoms develop, they can include:? Fatigue.? Weakness.? Weight loss.? Confusion.? Abdominal pain.? Yellowing of your skin and the white parts of your eyes (jaundice).? Nausea and vomiting.How is this diagnosed?Fatty liver may be diagnosed by:? Physical exam and medical history.? Blood tests.? Imaging tests, such as an ultrasound, CT scan, or MRI.? Liver biopsy. A small sample of liver tissue is removed using a needle. The sample is then looked at under a microscope.How is this treated?Fatty liver is often caused by other health conditions. Treatment for fatty liver may involve medicines and lifestyle changes to manage conditions such as:? Alcoholism.? High cholesterol.? Diabetes.? Being overweight or obese.Follow these instructions at home:? Eat a healthy diet as directed by your health care provider.? Exercise regularly. This can help you lose weight and control your cholesterol and diabetes. Talk to your health care provider about an exercise plan and which activities are best for you.? Do not drink alcohol.? Take medicines only as directed by your health care provider.Contact a health care provider if:You have difficulty controlling your:? Blood sugar.? Cholesterol.? Alcohol consumption.Get help right away if:? You have abdominal pain.? You have jaundice.? You have nausea and vomiting.This information is not intended to replace advice given to you by your health care provider. Make sure you discuss any questions you have with your health care provider.Document Released: 10/01/2006 Document Revised: 01/21/2017 Document Reviewed: 12/26/2014[employer] Patient Education ? 2018 [employer]. Normal [facility] ED Patient Summaryon 018 ED Patient Summary [facility] - Emergency [address] [place] [address] pATIENT DISCHARGE INSTRUCTIONSPatient InformationName: ROSENDO HICKS Age: 42 YearsDate of : [birth year]MRN: [id number] Visit: Abdominal pain; RIGHT FLANK PAINArrival Time: 06/27/18 15:43:00Phone: Primary Care Physician: Provider, NoneAttending Physician: Jimmy Singletary MDComment:Visit Diagnosis:Diagnoses This Visit Abdominal pain ([id number]) Acute gastritis (K29.0) Fatty infiltration of liver (K76.0)If you received any narcotics, sedation, or any other medication that causes drowsiness for the next 24 hours, unless otherwise directed:? Do not drive a car.? Do not operate machinery such as power tools, lawn mowers, drills, sewing machines, or stoves? Avoid alcoholic beverages and drugs for allergies, nerves, or sleep? Do not make important personal or business decisions or sign any legal documentsWith: Address: When:Cole Mcnair Within 7 to 10 daysComments:General surgeryWith: Address: When:Owen Dolan Within 7 to 10 daysMedication Information:The exam and treatment you received today in the [facility] Emergency Department were for an urgent problem and are not intended as complete care. It is important for you to follow up with a doctor, nurse practitioner, or physician?s learning and development assistant for ongoing care. If your symptoms become worse or you do not improve as expected and you are unable to reach your usual health care provider, you should return to the Emergency Department, we are available 24 hours a day.For those patients who have received Radiology results, the interpretation of your X-ray as given to you by our Emergency Department physician is only a preliminary report. The Radiologist will review your films and if there is a change in the diagnosis you will be notified by phone. Please make sure you have provided a working phone number so we can reach you if necessary.In the event that you had a lab culture while you were a patient in the Emergency Department, you will be notified by phone if there is a need to change your antibiotic. Please make sure you have provided a working phone number so we can reach you if necessary.[facility] Emergency Department has provided you with a complete list of medications post discharge. 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 Any specific questions regarding your chronic medications and dosages should be discussed with your primary care physician(s) and/or pharmacist. New MedicationsPrinted PrescriptionsMisc Prescription (HIDA Scan) DX: RUQ painResults to Dr. Dolan. Refills: 0.pantoprazole (Protonix 40 mg oral delayed release tablet) 1 tab(s) Oral every day. Refills: 0.Visit InformationAllergies:Substance Reaction Symptoms Type CommentsNo Known Medication Allergies DrugVital Signs: Vitals and Measurements this Visit (last charted value for your 06/27/2018 visit) Vital Signs This Visit Temperature Oral: 36.9 DegC Peripheral Pulse Rate: 82 bpm Respiratory Rate: 16 br/min Systolic Blood Pressure: 147 mmHg Diastolic Blood Pressure: 99 mmHg SpO2: 100 % Oxygen Therapy: Room air Measurements This Visit Height/Length Dosin.480 cm Height/Length Estimated: 185.480 cm Weight Dosin.010 kg Weight Estimated: 127.010 kgProblems List:Problem Onset CommentsNo Problems foundPatient EducationBiliary Colic, AdultBiliary colic is severe pain caused by a problem with a small organ in the upper right part of your belly (gallbladder). The gallbladder stores a digestive fluid produced in the liver (bile) that helps the body break down fat. Bile and other digestive enzymes are carried from the liver to the small intestine though tube-like structures (bile ducts). The gallbladder and the bile ducts form the biliary tract. Sometimes hard deposits of digestive fluids form in the gallbladder (gallstones) and block the flow of bile from the gallbladder, causing biliary colic. This condition is also called a gallbladder attack. Gallstones can be as small as a grain of sand or as big as a golf ball. There could be just one gallstone in the gallbladder, or there could be many.What are the causes?Biliary colic is usually caused by gallstones. Less often, a tumor could block the flow of bile from the gallbladder and trigger biliary colic.What increases the risk?This condition is more likely to develop in:? Women.? People of descent.? People with a family history of gallstones.? People who are obese.? People who suddenly or quickly lose weight.? People who eat a high-calorie, low-fiber diet that is rich in refined carbs (carbohydrates), such as white bread and white rice.? People who have an intestinal disease that affects nutrient absorption, such as Crohn disease.? People who have a metabolic condition, such as metabolic syndrome or diabetes.What are the signs or symptoms?Severe pain in the upper right side of the belly is the main symptom of biliary colic. You may feel this pain below the chest but above the hip. This pain often occurs at night or after eating a very fatty meal. This pain may get worse for up to an hour and last as long as 12 hours. In most cases, the pain fades (subsides) within a couple hours.Other symptoms of this condition include:? Nausea and vomiting.? Pain under the right shoulder.How is this diagnosed?This condition is diagnosed based on your medical history, your symptoms, and a physical exam. You may have tests, including:? Blood tests to rule out infection or inflammation of the bile ducts, gallbladder, pancreas, or liver.? Imaging studies such as:? Ultrasound.? CT scan.? MRI.In some cases, you may need to have an imaging study done using a small amount of radioactive material (nuclear medicine) to confirm the diagnosis.How is this treated?Treatment for this condition may include medicine to relieve your pain or nausea. If you have gallstones that are causing biliary colic, you may need surgery to remove the gallbladder (cholecystectomy). Gallstones can also be dissolved gradually with medicine. It may take months or years before the gallstones are completely gone.Follow these instructions at home:? Take fkwr-rrm-wsvgiye and prescription medicines only as told by your health care provider.? Drink enough fluid to keep your urine clear or pale yellow.? Follow instructions from your health care provider about eating or drinking restrictions. These may include avoiding:? Fatty, greasy, and fried foods.? Any foods that make the pain worse.? Overeating.? Having a large meal after not eating for a while.? Keep all follow-up visits as told by your health care provider. This is important.How is this prevented?Steps to prevent this condition include:? Maintaining a healthy body weight.? Getting regular exercise.? Eating a healthy, high-fiber, low-fat diet.? Limiting how much sugar and refined carbs you eat, such as sweets, white flour, and white rice.Contact a health care provider if:? Your pain lasts more than 5 hours.? You vomit.? You have a fever and chills.? Your pain gets worse.Get help right away if:? Your skin or the whites of your eyes look yellow (jaundice).? Your have tea-colored urine and light-colored stools.? You are dizzy or you faint.This information is not intended to replace advice given to you by your health care provider. Make sure you discuss any questions you have with your health care provider.Document Released: 01/17/2007 Document Revised: 04/13/2017 Document Reviewed: 03/01/2017Mal Interactive Patient Education ? 2018 [employer].Fatty LiverFatty liver, also called hepatic steatosis or steatohepatitis, is a condition in which too much fat has built up in your liver cells. The liver removes harmful substances from your bloodstream. It produces fluids your body needs. It also helps your body use and store energy from the food you eat. In many cases, fatty liver does not cause symptoms or problems. It is often diagnosed when tests are being done for other reasons. However, over time, fatty liver can cause inflammation that may lead to more serious liver problems, such as scarring of the liver (cirrhosis).What are the causes?Causes of fatty liver may include:? Drinking too much alcohol.? Poor nutrition.? Obesity.? [place] syndrome.? Diabetes.? Hyperlipidemia.? .? Certain drugs.? Poisons.? Some viral infections.What increases the risk?You may be more likely to develop fatty liver if you:? Abuse alcohol.? Are .? Are overweight.? Have diabetes.? Have hepatitis.? Have a high triglyceride level.What are the signs or symptoms?Fatty liver often does not cause any symptoms. In cases where symptoms develop, they can include:? Fatigue.? Weakness.? Weight loss.? Confusion.? Abdominal pain.? Yellowing of your skin and the white parts of your eyes (jaundice).? Nausea and vomiting.How is this diagnosed?Fatty liver may be diagnosed by:? Physical exam and medical history.? Blood tests.? Imaging tests, such as an ultrasound, CT scan, or MRI.? Liver biopsy. A small sample of liver tissue is removed using a needle. The sample is then looked at under a microscope.How is this treated?Fatty liver is often caused by other health conditions. Treatment for fatty liver may involve medicines and lifestyle changes to manage conditions such as:? Alcoholism.? High cholesterol.? Diabetes.? Being overweight or obese.Follow these instructions at home:? Eat a healthy diet as directed by your health care provider.? Exercise regularly. This can help you lose weight and control your cholesterol and diabetes. Talk to your health care provider about an exercise plan and which activities are best for you.? Do not drink alcohol.? Take medicines only as directed by your health care provider.Contact a health care provider if:You have difficulty controlling your:? Blood sugar.? Cholesterol.? Alcohol consumption.Get help right away if:? You have abdominal pain.? You have jaundice.? You have nausea and vomiting.This information is not intended to replace advice given to you by your health care provider. Make sure you discuss any questions you have with your health care provider.Document Released: 10/01/2006 Document Revised: 01/21/2017 Document Reviewed: 12/26/2014Elsevier Interactive Patient Education ? 2018 [employer]. Viruses or BacteriaWhat?s got you sick?Antibiotics only treat bacterial infections. Viral illnesses cannot be treated with antibiotics. When an antibiotic is not prescribed, ask your healthcare professional for tips on how to relieve symptoms and feel better. Usual CauseIllnessVirusesBacteria Antibiotic NeededCold/Runny Nose NOBronchitis/Chest Cold (in otherwise healthy children and adults) NOWhooping Cough YesFlu NOStrep Throat YesSore Throat (except strep) NOFluid in the middle ear (otitis media with effusion) NOUrinary Tract Infection YesAntibiotics Aren?t Always the Answerwww.cdc.gov/getsmart GET SMART Know When Antibiotics [place] Department of Health and Human ServicesCenters for Disease Control and Prevention April 2014 Normal [facility] Extra Blueon 06-27-2018 Tube Collected Yes Invalid Interpretation Code [facility] Comment on above: Performed By: #### [id number] ####[facility] (DEFAULT)[address] [place] [address] Lactic Acidon 06-27-2018 Lactate molar conc 8.8 mg/dL Normal 4.5-19.8 [facility] Comment on above: Performed By: #### [id number] ####[facility] (DEFAULT)[address] [place] [address] Lipaseon 06-27-2018 Lipase Level 21.0 IU/L Low 22.0-51.0 [facility] Comment on above: Performed By: #### [id number] ####[facility] (DEFAULT)[address] [place] [address] Rad - Other Radiology Report on 06-27-2018 Rad - Other Radiology Report [id number][facility] - Other Radiology Report [id number]#1.00OTGTIFF [facility] US Gallbladderon 06-27-2018 US Gallbladder ULTRASOUND GALLBLADD ERCLINICAL DATA: Right upper quadrant abdominal pain for two daysGallbladder ultrasound study was performed. In the gallbladder, there is noevidence of gallstones or wall thickening. No obvious pericholecystic fluid.Common bile duct measures 0.35 cm in diameter which is within normal limits.Views of the liver fail to demonstrate evidence of focal mass or intrahepaticductal dilatation. There is mild increased echogenicity of the livercompatible with some degree of fatty infiltration. Limited views of thepancreas and right kidney are grossly unremarkable.IMPRESSION:1. GALLBLADDER ULTRASOUND STUDY FAILS TO DEMONSTRATE EVIDENCE OF GALLSTONESOR WALL THICKENING.2. SOME DEGREE OF FATTY INFILTRATION OF THE LIVER SUGGESTED.NEERU Rivera #: [id number]: 06/28/2018T: 06/28/2018 Final Dictated by: Shilo Barraza MD SDictated DT/TM: 06/28/18 7:43Signed (Electronic Signature): Shilo Barraza MD 06/28/18 11:25 aTechnologist: DLR [facility] Vital Signs Date Time Vital Sign Value Performing Clinician Joshua villalobos 10-25-2024 15:33-0500 Blood Pressure Location Jona SEVILLA [facility] General Surgery Johnny 10-25-2024 15:33-0500 Diastolic blood pressure 88 mm[Hg] Jona SEVILLA [facility] 10-25-2024 15:33-0500 Heart rate 76 /min Jona ERVINL [facility] 10-25-2024 15:33-0500 Respiratory rate 16 /min Jona NILL [facility] 10-25-2024 15:33-0500 Systolic blood pressure 128 mm[Hg] Jona NILL [facility] Encounters Encounter Date Encounter Type Care Provider Facility Start: 10-25-2024 End: 10-25-2024 ambulatory Jona SEVILLA Facility:[facility] Start: 10-25-2024 End: 10-25-2024 Patient encounter procedure Jona SEVILLA [facility] Start: 10-03-2024 ambulatory Rosendo BORGES Facilit y:[facility] Start: 08-21-2024 End: 08-21-2024 Telephone encounter Owen Ríos DO Work Phone: [facility] 230 Comment on above: Med Refill Start: 06-23-2024 End: 06-23-2024 ambulatory Rosenod BORGES Facility:[facility] Start: 04-10-2024 End: 04-10-2024 ambulatory TIOMTEO REYNOSO Not Available Start: 02-17-2024 End: 02-17-2024 ambulatory OWEN RÍOS Not Available Start: 07-14-2018 End: 07-14-2018 Patient encounter procedure Cole Mcnair Facility[facility] Start: 07-02-2018 End: 07-02-2018 Patient encounter procedure Jimmy Singletary Facility:[facility] Start: 06-28-2018 End: 06-28-2018 Patient encounter procedure Jimmy Singletary Facility:[facility] Start: 06-27-2018 End: 06-27-2018 Emergency department patient visit Jimmy Singletary Facility:[facility] Procedures Date Procedure Procedure Detail Performing Clinician Tonsillectomy and adenoidectomy Jona SEVILLA Plan of Treatment Date Care Activity Detail Author Start: 04-30-2024 Influenza vaccination Influenza Vacc ine (#1) [facility] Start: 1975 Screening for malign ant neoplasm of colon [facility] Payers Date Payer Category Payer Private Health Insurance [employer] [id number] 2021 Unknown [id number] 2018 Private Health Insurance [id number] 2018 Self-pay [employer] 1974 Unknown [id number] 1974 Unknown [id number] 1974 Unknown [id number] 1974 Unknown [id number] [id number] 1974 Unknown [id number] 9 1974 Unknown [id number] 9 1974 Unknown [id number] 727 Social History Date Type Detail Facility Start: 04-10-2024 End: 10-25-2024 Tobacco smoking status AKIS Never smoked tobacco [facility] Start: 04-10-2024 Tobacco use and exposure User of smo keless tobacco [facility] History of tobacco use Snuff User [facility] Start: 04-10-2024 Alcoholic beverage intake Curr ent drinker of alcohol (finding) [facility] Start: 02-17-2024 History of Social function [facility] Start: 02-17-2024 B1300 Health Literacy [facility] How often do you nee d to have someone help you when you read instructions, pamphlets, or other written material from your doctor or pharmacy [SILS] Patient declines to respond [facility] Are you now , , , , never or living with a partner? [facility] How often to you hav e a drink containing alcohol? Monthly or less [facility] How many standard dr inks containing alcohol do you have on a typical day? 1 or 2 [facility] How often do you hav e 6 or more drinks on 1 occasion? Never [facility] Do you feel stress - tense, restless, nervous, or anxious, or unable to sleep at night because your mind is troubled all the time - these days [OSQ] Not at all [facility] In the past 12 month s, was there a time when you were not able to pay the mortgage or rent on time? No [facility] Start: 1975 Sex assigned at Not on file [facility] Functional Status Date Assessment Result Facility 10-25-2024 Functional Status N/A [facility] General Surgery [place] Clinical Note 10-25-2024 Note Date & Type Note Facility 10-25-2024 Note General Surgery Offi ce/Clinic Note Chief Complaint consultation for colonoscopy HPI Staff 49 year old male presents on self referral consultation for screening colonoscopy. Denies abdominal or rectal pain. No rectal bleeding or change in bowel habits. Denies nausea or vomiting. No unexplained weight loss. Never had colonoscopy in the past. No known family history of colon cancer. History of Present Illness 49 yo male with h/o GERD, presents for colorectal screening; denies change in bms or blood in stools, does complain of worsening GERD, intermittent epigastric pain, ache/sharp, worse in morning, despite PPI; no dysphagia or odynophagia, no early satiety or wt loss; patient saw Dr Reynoso in March, was to have EGD and colonoscopy, but he didn't schedule due to his work; no abd operations or previous colonoscopy; no asa or NSAID use; chews tobacco; no fmhx of GI malignancy or IBD. Review of Systems PHQ Score Initial Depression Screen Score: 0 SCORE ROS - Provider Constitutional: no fever, no sweats, no weight loss. Eyes: no glasses, no blurred vision, no visual loss. ENMT: no dentures, no hoarseness, no swallowing difficulties, no hearing loss, no ear infection(s), no nose bleeds. Cardiovascular: normal blood pressure, no chest pain, regular heartbeat, no heart murmur. Respiratory: no shortness of breath, no cough, no asthma, no wheezing. Gastrointestinal: no nausea, no vomiting, no diarrhea, no constipation, no blood in stool, no change in bowel habits, yes abdominal pain, no hepatitis. Genitourinary: no kidney stones, no urine infection, no dysuria. Musculoskeletal: no pain, no weakness. Skin: no changing moles, no rash, no skin lumps. Neurologic: no seizures, no epilepsy, no headache. Psychiatric: no emotional or psychiatric problem. Heme/Lymph: no bleeding problems, no anemia, no blood clots, no transfusions. Allergy/Immunologic: no swollen lymph nodes/glands, no IV drug abuse. Other: Additional ROS info: Except as noted in the above Review of Systems and in the History of Present Illness, all other systems have been reviewed and are negative or noncontributory. Physical Exam Vitals & Measurements HR: 76(Peripheral) RR: 16 BP: 128/88 HT: 73 in HT: 185 cm WT: 144 kg WT: 317.465 lb BMI: 42.07 HEENT: normal conjunctiva, sclera clear, no scleral icterus, EOM intact, PERRLA, oral mucosa moist without lesions. Neck: trachea midline, no mass, symmetric, no thyromegaly or nodules, no adenopathy Respiratory: lungs CTA, respirations non labored. Cardiovascular: regular rate and rhythm, no murmur, no pedal edema or varicosities. Gastrointestinal: obese, soft, non distended, no tenderness, no masses, no palpable hernias, diastasis recti no, no hepatosplenomegaly; normal bs Lymphatic: no cervical adenopathy, no supraclavicular adenopathy. Musculoskeletal: normal gait, digits and nails without infection, nodes, cyanosis, clubbing. Skin: no rashes, no lesions, no ulcers, no subcutaneous nodules, induration. Psychiatric/Neuro: oriented to time, place, person, judgement normal, affect appropriate for age, insight intact, no focal deficits. Tests: , review of old records completed , Discussed surgical options, risks, and possible complications with patient. Assessment/Plan 1. Screening for malignant neoplasm of colon (Z12.11: Encounter for screening for malignant neoplasm of colon) plan EGD and colonoscopy under anesthesia, informed consent obtained. 2. Chronic GERD (K21.9: Gastro-esophageal reflux disease without esophagitis) see # 1 3. Epigastric pain (R10.13: Epigastric pain) see # 1 4. Chews tobacco (Z72.0: Tobacco use) We strongly recommend to quit tobacco use. Cigarette smoking harms nearly every organ of the body, causes many diseases, and reduces the health of smokers in general. Quitting smoking lowers your risk for smoking-related diseases and can add years to your life. We encourage you to visit www.smokefree.gov access to helpful resources including free telephone support. If you decide on prescription treatment to help you quit, your family doctor would be happy to provide these. Follow-up No qualifying data available Problem List/Past Medical History Ongoing BMI 40.0-44.9, adult Chews tobacco Chronic GERD Class 3 obesity Epigastric pain GERD (gastroesophageal reflux disease) Screening for malignant neoplasm of colon Historical No qualifying data Procedure/Surgical History Tonsillectomy and adenoidectomy. Medications omeprazole 40 mg Cap-DR, 40 mg= 1 cap(s), Oral, Daily Allergies No Known Allergies Social History Alcohol Never., 10/24/2024 Substance Abuse Never., 10/24/2024 Tobacco Never (less than 100 in lifetime) Tobacco Use:. Smokeless tobacco user within last 30 days Smokeless Tobacco Use:. Oral, Started age 18.0 Years. Yes, 10/25/2024 Family History Family history is negative [facility] Comment on above: Result Comment: Elec tronically Signed By: ROEL QUIROZ, Jona Jackman\Date and Time Signed: 10/25/24 16:01 EST Telephone encounter Note 08-21-2024 Telephone Encounter - Moira Hindscamille - 08/21/2024 10:44 AM EST Note Date & Type Note Facility 08-21-2024 Telephone encount er Note Omeprazole DR 40 mg for 90 days to DDM in [place] [facility] Note 08-21-2024 Telephone Encounter - Moira Nicolekaylyn - 08/21/2024 10:44 AM EST Note Date & Type Note Facility 08-21-2024 Miscellaneous Notes Formattin g of this note might be different from the original. Omeprazole DR 40 mg for 90 days to [facility]DM in [place] documented in this encounter [facility] Evaluation + Plan note Note Date & Type Note Facility Evaluation + Plan note No data available for this section [facility] Hospital Discharge instructions Note Date & Type Note Facility Hospital Discharge instructions No data available for this section [facility] Progress note Note Date & Type Note Facility Progress note No data available for this section [facility] Summary Purpose Family History No Family History Records FoundNo Family History Records Found No data available for this section No Family History Records Found Advance Directives No Advanced Directives Records FoundNo Advanced Directives Records FoundNo Advanced Directives Records Found Additional Source Comments (unrecognized sect ion and content) No Status Records FoundNo Status Records FoundNo Status Records Found INFORMATION SOURCE (unrecogn ized section and content) DATE CREATED AUTHOR 08/06/2018 [facility] DATE CREATED AUTHOR AUTHOR'S ORGANIZ ATION 04/11/2024 [facility] EPIC DATE CREATED AUTHOR AUTHOR'S ORGANIZ ATION 10/26/2024 [facility] Reason for Visit (unrecogniz ed section and content) Reason Onset Date Comments Med Refill 08/21/2024 Care Teams (unrecognized sec tion and content) [employer] Relationship Specialty Start Date End Date Owen Ríos DO [address] [place] [address] [place] [id number] PCP - General Family Medicine 02/17/24 Owen Ríos DO [address] [facility] [address] [place] [address] PCP - Medical [place] [employer] 08/30/21 08/29/99 FOR RECORDS PERTAINING TO PATIENTS WHO ARE OR HAVE BEEN ENROLLED IN A CHEMICAL DEPENDENCY/SUBSTANCEABUSE PROGRAM, SOME INFORMATION MAY BE OMITTED. This clinical summary was aggregated from multiple sources. Caution should be exercised in using it in the provision of clinical care. This summary normalizes information from multiple sources, and as a consequence, information in this document may materially change the coding, format and clinical context of patient data. In addition, data may be omitted in some cases. CLINICAL DECISIONS SHOULD BE BASED ON THE PRIMARY CLINICAL RECORDS. App in the [employer] [facility]. provides no warranty or guarantee of the accuracy or completeness of information in this document.
[2024-11-01 08:16] VITALS: BP 135/85; PULSE 98; TEMP 36.3; O2SAT 96; BMI 41.8
[2024-11-01] MEDS: 0.9 % SODIUM CHLORIDE 500 ML 50 ML IV (08:41)
[2024-11-01 09:43] VITALS: BP 123/64; PULSE 90; TEMP 36.1; O2SAT 96
[2024-11-01 09:58] VITALS: BP 131/85; PULSE 85; TEMP 36.1; O2SAT 95
[2024-11-01 10:13] VITALS: BP 140/89; PULSE 74; TEMP 36.1; O2SAT 97
== END 2024-11-01 10:20 | disposition home or self-care (01) ==
PROVIDERS: PCP Family Medicine; Visit Provider Surgery
PROC: (CPT 813; principal; 2024-11-01 09:00)
DX: Z12.11 Encounter for screening for malignant neoplasm of colon (principal); K21.9 Gastro-esophageal reflux disease without esophagitis; R10.13 Epigastric pain; K57.30 Diverticulosis of large intestine without perforation or abscess without bleeding; K29.50 Unspecified chronic gastritis without bleeding; F17.220 Nicotine dependence, chewing tobacco, uncomplicated; E66.01 Morbid (severe) obesity due to excess calories; Z68.41 Body mass index [BMI] 40.0-44.9, adult
CPT/HCPCS: 43239; 45378; J2704